=== PATIENT | female | born 1995 | race American Indian/Alaskan Native ===

== ENCOUNTER 2017-08-07 18:34 | Inpatient (IN) | payer MEDICAID ==
[2017-08-07] MEDS ORDERED: Water For Irrigation,Sterile 1,000 ML Container IRR PRN (21:33)
[2017-08-07] MEDS ORDERED: Carboprost Tromethamine 250 MCG/1 ML Amp IM PRN (21:33)
[2017-08-07] MEDS ORDERED: Sodium Chloride 0.9% 2.5 ML Syringe FLUSH PRN (21:33)
[2017-08-07] MEDS ORDERED: Lidocaine 1% 50 ML MDV INJECT PRN (21:33)
[2017-08-07] MEDS ORDERED: Misoprostol 200 MCG Tab PO PRN (21:33)
[2017-08-07] MEDS ORDERED: Terbutaline 1 MG/ML SDV SUBCUT PRN (21:33)
[2017-08-07] MEDS ORDERED: Sodium Chloride 0.9% 10 ML Syringe FLUSH PRN (21:33)
[2017-08-07] MEDS ORDERED: Nalbuphine 10 MG/1 ML Vial IVPUSH PRN (21:33)
[2017-08-07] MEDS ORDERED: Methylergonovine 0.2 MG/1 ML Amp IM PRN (21:33)
[2017-08-07] MEDS ORDERED: Oxytocin/0.9 % Sodium Chloride 30 UNIT/500 ML BAG IV SCH ×2 (21:45)
[2017-08-07] MEDS: Lactated Ringers 1,000 ML IV SCH (22:13)
[2017-08-07 22:46] LABS: CHLORIDE,CL 111 mmol/L (98-110); SODIUM,NA 137 mmol/L (136-146)
[2017-08-07] MEDS: Butorphanol 1 MG/ML SDV IVPUSH PRN (22:55)
[2017-08-08] MEDS: Butorphanol 1 MG/ML SDV IVPUSH PRN (02:46)
[2017-08-08] MEDS: Lactated Ringers 1,000 ML IV SCH ×2 (03:31→04:00)
[2017-08-08] MEDS ORDERED: ePHEDrine 50 MG/ML SDV ONE (04:00)
[2017-08-08] MEDS ORDERED: fentaNYL 100 MCG/2 ML SDV ONE (04:01)
[2017-08-08] MEDS ORDERED: Ropivacaine HCl/PF 100 ML ONE (04:01)
[2017-08-08] MEDS ORDERED: Ropivacaine 0.2% 2 MG/ML 20 ML SDV ONE (04:01)
--- NOTE | 2017-08-08 04:46 | PCM.PREANE ---
Preanesthetic Assessment - Procedure Proposed Procedure: labor epidural - Anesthesia/Transfusion/Family Hx Anesthesia History: Prior Anesthesia Without Reaction (wisdom teeth) Family History of Anesthesia Reaction: No Transfusion History: No Prior Transfusion(s) - Review of Systems General: No Symptoms Pulmonary: No Symptoms Cardiovascular: No Symptoms Gastrointestinal: No Symptoms Neurological: No Symptoms Other: Reports: None - Physical Assessment Pulse: 120 O2 Sat by Pulse Oximetry: 98 Blood Pressure: 142/75 Height: 1.57 m Weight: 81.647 kg ASA Class: 2 Mental Status: Alert & Oriented x3 Airway Class: Mallampati = 2 Dentition: Reports: Normal Dentition Thyro-Mental Finger Breadths: 3 (2 lip piercing lower lip) Mouth Opening Finger Breadths: 3 ROM/Head Extension: Full Lungs: Clear to Auscultation Cardiovascular: Regular Rate - Lab Values: Laboratory Last Values WBC 8.50 K/uL (4.0-11.0) 08/07/17 22:11 RBC 3.91 M/uL (4.30-5.90) L 08/07/17 22:11 Hgb 12.1 g/dL (12.0-16.0) 08/07/17 22:11 Hct 35.7 % (36.0-46.0) L 08/07/17 22:11 MCV 91.3 fL (80.0-98.0) 08/07/17 22:11 MCH 30.9 pg (27.0-32.0) 08/07/17 22:11 MCHC 33.9 g/dL (31.0-37.0) 08/07/17 22:11 RDW Std Deviation 46.2 fl (28.0-62.0) 08/07/17 22:11 RDW Coeff of Radha 14 % (11.0-15.0) 08/07/17 22:11 Plt Count 168 K/uL (150-400) 08/07/17 22:11 MPV 13.40 fL (7.40-12.00) H 08/07/17 22:11 Nucleated RBC % 0.9 /100WBC 08/07/17 22:11 Nucleated RBCs # 0 K/uL 08/07/17 22:11 INR 0.92 (0.86-1.11) 08/07/17 22:11 APTT 28.1 SEC (18.6-31.3) 08/07/17 22:11 Fibrinogen 432 mg/dL (215-411) H 08/07/17 22:11 Sodium 137 mmol/L (136-146) 08/07/17 22:11 Potassium 4.2 mmol/L (3.5-5.1) 08/07/17 22:11 Chloride 111 mmol/L (98-110) H 08/07/17 22:11 Carbon Dioxide 18 mmol/L (21-31) L 08/07/17 22:11 BUN 12 mg/dL (6.0-23.0) 08/07/17 22:11 Creatinine 0.7 mg/dL (0.6-1.5) 08/07/17 22:11 Est Cr Clr Drug Dosing 98.01 mL/min 08/07/17 22:11 Estimated GFR (MDRD) > 60.0 ml/min 08/07/17 22:11 Glucose 90 mg/dL (60-110) 08/07/17 22:11 Calcium 8.6 mg/dL (8.8-10.8) L 08/07/17 22:11 Total Bilirubin 0.3 mg/dL (0.1-1.5) 08/07/17 22:11 AST 34 IU/L (5-40) 08/07/17 22:11 ALT 27 IU/L (8-54) 08/07/17 22:11 Alkaline Phosphatase 182 (40-150) H 08/07/17 22:11 Total Protein 6.1 g/dL (6.0-8.0) 08/07/17 22:11 Albumin 3.0 g/dL (3.5-5.0) L 08/07/17 22:11 Globulin 3.1 g/dL (2.0-3.5) 08/07/17 22:11 Albumin/Globulin Ratio 1.0 (1.3-2.8) L 08/07/17 22:11 Urine Color YELLOW 08/07/17 19:15 Urine Appearance HAZY 08/07/17 19:15 Urine pH 6.5 (5.0-8.0) 08/07/17 19:15 Ur Specific [place] <= 1.005 (1.001-1.035) 08/07/17 19:15 Urine Protein NEGATIVE mg/dL (NEGATIVE) 08/07/17 19:15 Urine Glucose (UA) NEGATIVE mg/dL (NEGATIVE) 08/07/17 19:15 Urine Ketones NEGATIVE mg/dL (NEGATIVE) 08/07/17 19:15 Urine Occult Blood NEGATIVE (NEGATIVE) 08/07/17 19:15 Urine Nitrite NEGATIVE (NEGATIVE) 08/07/17 19:15 Urine Bilirubin NEGATIVE (NEGATIVE) 08/07/17 19:15 Urine Urobilinogen 0.2 EU/dL (<2.0) 08/07/17 19:15 Ur Leukocyte Esterase SMALL (NEGATIVE) 08/07/17 19:15 Blood Type A POSITIVE 08/07/17 22:11 Antibody Screen NEGATIVE 08/07/17 22:11 - Allergies Allergies/Adverse Reactions: Allergies Allergy/AdvReac Type Severity Reaction Status Date / Time morphine Allergy Rash Verified 08/07/17 18:53 Penicillins Allergy Anaphylactic Verified 08/07/17 18:53 Shock vancomycin Allergy Anaphylactic Verified 08/07/17 18:53 Shock - Blood Blood Available: Yes Product(s) Available: PRBC - Anesthesia Plan Pre-Op Medication Ordered: None - Acknowledgements Anesthesia Type Planned: Epidural Pt an Appropriate Candidate for the Planned Anesthesia: Yes Alternatives and Risks of Anesthesia Discussed w Pt/Guardian: Yes Pt/Guardian Understands and Agrees with Anesthesia Plan: Yes PreAnesthesia Questionnaire Respiratory History: Reports: Asthma 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: Psychiatric History: Reports: Depression - Past Surgical History Respiratory Surgical History: Reports: None - SUBSTANCE USE Smoking Status *Q: Former Smoker Tobacco Use Within Last Twelve Months: No Recreational Drug Use History: No - CURRENT (IN HOUSE) MEDS Current Meds: Current Medications Butorphanol Tartrate (Stadol) 1 mg IVPUSH Q1H PRN PRN Reason: Pain Last Admin: 08/08/17 02:46 Dose: 1 mg Carboprost Tromethamine (Hemabate Ds) 250 mcg IM ASDIRECTED PRN PRN Reason: Post Hemorrhage Lactated Ringer's (Ringers, Lactated) 1,000 mls @ 150 mls/hr IV ASDIRECTED GLORIA Last Infusion: 08/08/17 04:29 Dose: 150 mls/hr Oxytocin/Sodium Chloride (Oxytocin 30 Unit/500 Ml-Ns) 30 unit in 500 mls @ 999 mls/hr IV TITRATE GLORIA Oxytocin/Sodium Chloride (Oxytocin 30 Unit/500 Ml-Ns) 30 unit in 500 mls @ 2 mls/hr IV TITRATE GLORIA; 2 MUNITS/MIN PRN Reason: Protocol Last Titration: 08/08/17 01:45 Dose: 6 munits/min, 6 mls/hr Lidocaine HCl (Xylocaine 1%) 50 ml INJECT .ONCE PRN PRN Reason: Laceration repair Methylergonovine Maleate (Methergine) 0.2 mg IM ASDIRECTED PRN PRN Reason: Post Hemorrhage Misoprostol (Cytotec) 200 mcg PO .ONCE PRN PRN Reason: Post Hemorrhage Nalbuphine HCl (Nubain) 10 mg IVPUSH Q1H PRN PRN Reason: Pain (severe 7-10) Sodium Chloride (Saline Flush) 10 ml FLUSH ASDIRECTED PRN PRN Reason: Keep Vein Open Sodium Chloride (Saline Flush) 2.5 ml FLUSH ASDIRECTED PRN PRN Reason: Keep Vein Open Sterile Water (Sterile Water For Irrigation) 1,000 ml IRR ASDIRECTED PRN PRN Reason: delivery Terbutaline Sulfate (Brethine) 0.25 mg SUBCUT ASDIRECTED PRN PRN Reason: Tacysystole Discontinued Medications Ephedrine Sulfate (Ephedrine Sulfate) Confirm Administered Dose 50 mg .ROUTE .STK-MED ONE Stop: 08/08/17 04:01 Fentanyl (Sublimaze) Confirm Administered Dose 300 mcg .ROUTE .STK-MED ONE Stop: 08/08/17 04:02 Ropivacaine (Naropin 0.2%) Confirm Administered Dose 100 mls @ as directed .ROUTE .STK-MED ONE Stop: 08/08/17 04:02 Ropivacaine (Naropin 0.2%) Confirm Administered Dose 20 ml .ROUTE .STK-MED ONE Stop: 08/08/17 04:02
--- NOTE | 2017-08-08 04:52 | PCM.PRNOTE ---
- Free Text/Narrative Note: Called for a labor epidural for patient c/o labor pain. Patient identified and history reviewed. Discussed procedure and risks including bleeding, infection, nerve pain, nerve damage and unsuccessful epidural. Patient agrees. Sitting up, sterile betadine prep times 3 and sterile drape. 1% lidocaine SQ at L4 #25 Touhy advanced os x 1 on right, needle redirected TOMY, Touhy advanced TOMY saline to approximately 6 cm. Catheter easily advanced to 12 cm. No heme no paresthesia. Test dose 3 ml 1.5% lidocaine with epinephrine 1:200,000. negative reaction. Bolus of fentanyl 100 mcg given with 4 ml 0.2% ropivicaine. ropivicaine bolus x2 of 2ml each. Total 8 ml bolus.Patient reports pain relief after 2 contractions. Level noted to be T10 on right, lt side T12. pt turned to left, to help spread. Epidural drip of 0.2% ropivicaine and Fentanyl 2 mcg/ml started at 8 ml/hr PCEA bolus of 4 ml every 20 minutes. Pt tolerated well.
[2017-08-08] MEDS ORDERED: Acetaminophen 500 MG Tab PO ONE (05:20)
[2017-08-08 08:01] LABS: CHLORIDE,CL 111 mmol/L (98-110); SODIUM,NA 137 mmol/L (136-146)
[2017-08-08] MEDS ORDERED: Magnesium Sulfate/Water 4 GM in Premix Bag 1 BAG IV ONE (09:01)
[2017-08-08] MEDS ORDERED: Sodium Chloride 0.9% 2.5 ML Syringe FLUSH PRN (09:01)
[2017-08-08] MEDS ORDERED: Calcium Gluconate 10% 1 GM/10 ML SDV IV PRN (09:01)
[2017-08-08] MEDS ORDERED: Sodium Chloride 0.9% 10 ML Syringe FLUSH PRN (09:01)
[2017-08-08] MEDS ORDERED: Sodium Chloride 0.9% 1,000 ML IV SCH (09:45)
[2017-08-08] MEDS: Magnesium Sulfate/Water 40 GM/1,000 ML BAG IV SCH (10:15)
[2017-08-08] MEDS ORDERED: Lanolin 100% Cream 7 GM Tube TOP PRN (13:33)
[2017-08-08] MEDS ORDERED: oxyCODONE 5 MG Tab PO PRN (13:33)
[2017-08-08] MEDS ORDERED: Benzocaine/Menthol 20%-0.5% Spray 78 GM Cannister TOP PRN (13:33)
[2017-08-08] MEDS ORDERED: Ibuprofen 400 MG Tab PO PRN (13:33)
[2017-08-08] MEDS ORDERED: Docusate Sodium 100 MG Cap PO PRN (13:33)
[2017-08-08] MEDS ORDERED: Bisacodyl 10 MG Supp RECTAL PRN (13:33)
[2017-08-08] MEDS ORDERED: Witch Hazel Medicated Pads 40/Jar TOP PRN (13:33)
--- NOTE | 2017-08-08 14:10 | OR ---
SURGEON: AILYN FLAHERTY DATE OF PROCEDURE: 08/08/2017 PREOPERATIVE DIAGNOSIS: A 22-year-old 1, para 0, at 38 weeks 1 day undergoing induction of labor for gestational hypertension and decreased movement. GBS negative. POSTOPERATIVE DIAGNOSIS: Status post normal spontaneous vaginal delivery at 38 weeks 1 day. Patient with severe preeclampsia, GBS negative. ESTIMATED BLOOD LOSS: 300. FINDINGS: Live female delivered at 12:58 p.m. score of 9 and 9. Weight was 2910 g. The perineum was intact. 3-vessel cord was noted. ANESTHESIA: Epidural. BRIEF HISTORY: She is a 22-year-old, G1, P0, who presented at 38 weeks and 0 days complaining of decreased movement. Upon evaluation, the patient was noted to have blood pressure in 120s to 160s over 80s to 100s. Patient was started on magnessium for seizure prophylaxis . As a result, the patient was admitted for induction of labor secondary to gestational hypertension, rule out preeclampsia. The patient was 2 cm on presentation. Induction was started with Choi. After the Choi, the patient received Pitocin. Pitocin was gradually titrated up. The patient had changed after the Choi from 2-4 cm dilated. She then progressed to 7. Then became fully dilated. The patient had a category 1 tracing majorly. Occasionally had variable decels. With that good pushing effort, the patient was delivered. PROCEDURE : The patient was placed in dorsal lithotomy position and she was then encouraged to push. With patient's good pushing effort, the head was delivered, subsequently the anterior shoulder and the posterior shoulder. The body was then subsequently delivered. The was placed on the skin. Delayed cord clamping was observed and the cord clamp and cut. The placenta was delivered via controlled cord traction. The uterus was found to be contracted after the delivery. The perineum was inspected and noted to be intact. The laparotomy sponges were counted and was found to be correct. All instrument counts were correct x2. The patient tolerated the procedure and is currently bonding with the baby. JUAN SHEIKH /[id number] JAJA
[2017-08-08] MEDS: Ibuprofen 800 MG Tab PO PRN ×2 (15:06→21:13)
[2017-08-08] MEDS: Acetaminophen 500 MG Tab PO PRN (17:22)
--- NOTE | 2017-08-08 21:42 | PCM48HPAN ---
Post Anesthesia Note - EVALUATION WITHIN 48HRS OF ANESTHETIC Vital Signs in Normal Range: Yes Patient Participated in Evaluation: Yes Respiratory Function Stable: Yes Airway Patent: Yes Cardiovascular Function Stable: Yes Hydration Status Stable: Yes Pain Control Satisfactory: Yes Nausea and Vomiting Control Satisfactory: Yes Mental Status Recovered: Yes
[2017-08-09] MEDS: Ibuprofen 800 MG Tab PO PRN ×2 (03:23→15:36)
[2017-08-09] MEDS: Magnesium Sulfate/Water 40 GM/1,000 ML BAG IV SCH (06:24)
[2017-08-09] MEDS: Acetaminophen 500 MG Tab PO PRN ×3 (09:39→22:43)
[2017-08-09] MEDS ORDERED: Metoclopramide 10 MG/2 ML SDV IM ONE (09:55)
[2017-08-09] MEDS ORDERED: Metoclopramide 10 MG/2 ML SDV IVPUSH ONE (10:09)
--- NOTE | 2017-08-09 11:30 | PCM.PNPP ---
- General Info Date of Service: 08/09/17 Admission Dx/Problem (Free Text): 22yo now P1 with severe preclampsia based on severe range BP and headache. she is currently stable on Magnessium. BP is well controlled Subjective Update: Patient seen at bedside , she denies any complains .she is voiding adequately. PIH labs wnl, DTR 2+ BP; 120s- 130s/70- 80s Functional Status: Reports: Pain Controlled, Tolerating Diet, Ambulating, Urinating - Review of Systems General: Reports: No Symptoms HEENT: Reports: No Symptoms Pulmonary: Reports: No Symptoms Cardiovascular: Reports: No Symptoms Gastrointestinal: Reports: No Symptoms Genitourinary: Reports: No Symptoms Musculoskeletal: Reports: No Symptoms Skin: Reports: No Symptoms Neurological: Reports: No Symptoms Psychiatric: Reports: No Symptoms - General Info Date of Service: 08/09/17 - Patient Data Vital Signs - Most Recent: Last Vital Signs Temp 36.6 C 08/09/17 08:00 Pulse 93 08/09/17 08:00 Resp 14 08/09/17 08:00 BP 134/86 08/09/17 08:00 Pulse Ox 99 08/09/17 08:00 Weight - Most Recent: 81.647 kg I&O - Last 24 Hours: Intake & Output 08/08/17 08/09/17 08/09/17 22:59 06:59 14:59 Intake Total 1050 Output Total 1200 Balance -150 Lab Results - Last 24 Hours: Laboratory Results - last 24 hr 08/08/17 08/08/17 08/09/17 Range/Units 14:36 19:50 01:56 Hgb (12.0-16.0) g/dL Hct (36.0-46.0) % Magnesium 3.6 H 4.3 H 4.7 H (1.5-2.3) mEq/L 08/09/17 08/09/17 Range/Units 08:18 08:18 Hgb 10.8 L (12.0-16.0) g/dL Hct 32.3 L (36.0-46.0) % Magnesium 4.8 H (1.5-2.3) mEq/L Med Orders - Current: Current Medications Acetaminophen (Tylenol Extra Strength) 500 mg PO Q4H PRN PRN Reason: Pain Last Admin: 08/09/17 09:39 Dose: 500 mg Acetaminophen (Tylenol Extra Strength) 1,000 mg PO Q4H PRN PRN Reason: Pain Last Admin: 08/08/17 17:22 Dose: 1,000 mg Benzocaine/Menthol (Dermoplast Pain Relief 20%-0.5% [place]) 78 gm TOP ASDIRECTED PRN PRN Reason: Perineal Comfort Measure Bisacodyl (Dulcolax) 10 mg RECTAL .ONCE PRN PRN Reason: Constipation Butorphanol Tartrate (Stadol) 1 mg IVPUSH Q1H PRN PRN Reason: Pain Last Admin: 08/08/17 02:46 Dose: 1 mg Calcium Gluconate (Calcium Gluconate) 1 gm IV ASDIRECTED PRN PRN Reason: respiratory distress Carboprost Tromethamine (Hemabate Ds) 250 mcg IM ASDIRECTED PRN PRN Reason: Post Hemorrhage Docusate Sodium (Colace) 100 mg PO BID PRN PRN Reason: Constipation Emollient Ointment (Lansinoh Hpa) 0 gm TOP ASDIRECTED PRN PRN Reason: Sore Nipples Last Admin: 08/08/17 17:35 Dose: 1 applic Lactated Ringer's (Ringers, Lactated) 1,000 mls @ 150 mls/hr IV ASDIRECTED GLORIA Last Infusion: 08/08/17 04:29 Dose: 150 mls/hr Oxytocin/Sodium Chloride (Oxytocin 30 Unit/500 Ml-Ns) 30 unit in 500 mls @ 999 mls/hr IV TITRATE GLORIA Oxytocin/Sodium Chloride (Oxytocin 30 Unit/500 Ml-Ns) 30 unit in 500 mls @ 2 mls/hr IV TITRATE GLORIA; 2 MUNITS/MIN PRN Reason: Protocol Last Titration: 08/08/17 12:41 Dose: 500 munits/min, 500 mls/hr Magnesium Sulfate (Magnesium Sulfate 40 Gm In Water 1000 Ml) 40 gm in 1,000 mls @ 50 mls/hr IV ASDIRECTED GLORIA; 2 GM/HR PRN Reason: Protocol Last Admin: 08/09/17 06:24 Dose: 2 gm/hr, 50 mls/hr Sodium Chloride (Normal Saline) 1,000 mls @ 10 mls/hr IV ASDIRECTED GLORIA Last Admin: 08/08/17 09:50 Dose: 10 mls/hr Ibuprofen (Motrin) 400 mg PO Q4H PRN PRN Reason: Pain Ibuprofen (Motrin) 800 mg PO Q6H PRN PRN Reason: Pain Last Admin: 08/09/17 03:23 Dose: 800 mg Lidocaine HCl (Xylocaine 1%) 50 ml INJECT .ONCE PRN PRN Reason: Laceration repair Methylergonovine Maleate (Methergine) 0.2 mg IM ASDIRECTED PRN PRN Reason: Post Hemorrhage Misoprostol (Cytotec) 200 mcg PO .ONCE PRN PRN Reason: Post Hemorrhage Nalbuphine HCl (Nubain) 10 mg IVPUSH Q1H PRN PRN Reason: Pain (severe 7-10) Oxycodone HCl (Oxycodone) 5 mg PO Q2H PRN PRN Reason: Pain Sodium Chloride (Saline Flush) 10 ml FLUSH ASDIRECTED PRN PRN Reason: Keep Vein Open Sodium Chloride (Saline Flush) 2.5 ml FLUSH ASDIRECTED PRN PRN Reason: Keep Vein Open Sodium Chloride (Saline Flush) 10 ml FLUSH ASDIRECTED PRN PRN Reason: Keep Vein Open Sodium Chloride (Saline Flush) 2.5 ml FLUSH ASDIRECTED PRN PRN Reason: Keep Vein Open Sterile Water (Sterile Water For Irrigation) 1,000 ml IRR ASDIRECTED PRN PRN Reason: delivery Terbutaline Sulfate (Brethine) 0.25 mg SUBCUT ASDIRECTED PRN PRN Reason: Tacysystole Witch Karen (Tucks) 1 pad TOP ASDIRECTED PRN PRN Reason: comfort care Discontinued Medications Acetaminophen (Tylenol Extra Strength) 1,000 mg PO ONETIME ONE Stop: 08/08/17 05:21 Last Admin: 08/08/17 05:35 Dose: 1,000 mg Ephedrine Sulfate (Ephedrine Sulfate) Confirm Administered Dose 50 mg .ROUTE .STK-MED ONE Stop: 08/08/17 04:01 Last Admin: 08/08/17 06:15 Dose: Not Given Fentanyl (Sublimaze) Confirm Administered Dose 300 mcg .ROUTE .STK-MED ONE Stop: 08/08/17 04:02 Last Admin: 08/08/17 06:15 Dose: Not Given Ropivacaine (Naropin 0.2%) Confirm Administered Dose 100 mls @ as directed .ROUTE .STK-MED ONE Stop: 08/08/17 04:02 Last Admin: 08/08/17 06:15 Dose: Not Given Magnesium Sulfate 4 gm/ Premix 100 mls @ 400 mls/hr IV .BOLUS ONE Stop: 08/08/17 09:15 Last Admin: 08/08/17 09:55 Dose: 400 mls/hr Metoclopramide HCl (Reglan) 10 mg IM ONETIME ONE Stop: 08/09/17 09:56 Last Admin: 08/09/17 10:21 Dose: Not Given Metoclopramide HCl (Reglan) 10 mg IVPUSH ONETIME ONE Stop: 08/09/17 10:10 Last Admin: 08/09/17 10:22 Dose: 10 mg Ropivacaine (Naropin 0.2%) Confirm Administered Dose 20 ml .ROUTE .STK-MED ONE Stop: 08/08/17 04:02 Last Admin: 08/08/17 06:15 Dose: Not Given - Interaction Infant Disposition, : at Bedside Support Person: Significant Other - Recovery Exam Fundal Tone: Firm Fundal Level: 1 Fingerbreadths Below Umbilicus Fundal Placement: Midline Lochia Amount: Scant Lochia Color: Rubra/Red Perineum Description: Intact, Minimal Bruising/Swelling Episiotomy/Laceration: None Bladder Status: Voiding Urinary Elimination: Voided - Exam General: Alert, Oriented Lungs: Clear to Auscultation, Normal Respiratory Effort Cardiovascular: Regular Rate, Regular Rhythm GI/Abdominal Exam: Normal Bowel Sounds, Soft Extremities: Normal Inspection Psy/Mental Status: Alert - Problem List & Annotations (1) Pre-eclampsia SNOMED Code(s): 343732391 Code(s): O14.90 - UNSPECIFIED PRE-ECLAMPSIA, UNSPECIFIED TRIMESTER Status: Acute Current Visit: Yes - Problem List Review Problem List Initiated/Reviewed/Updated: Yes - My Orders Last 24 Hours: My Active Orders 08/08/17 11:15 Deep Tendon Reflexes [WOMSER] Q1H 08/08/17 12:15 Deep Tendon Reflexes [WOMSER] Q1H 08/08/17 13:15 Deep Tendon Reflexes [WOMSER] Q1H 08/08/17 13:33 Acetaminophen [Tylenol Extra Strength] 1,000 mg PO Q4H PRN Acetaminophen [Tylenol Extra Strength] 500 mg PO Q4H PRN Benzocaine/Menthol [Dermoplast Pain Relief 20%-0.5% [place]] 78 gm TOP ASDIRECTED PRN Bisacodyl [Dulcolax] 10 mg RECTAL .ONCE PRN Docusate Sodium [Colace] 100 mg PO BID PRN Ibuprofen [Motrin] 400 mg PO Q4H PRN Ibuprofen [Motrin] 800 mg PO Q6H PRN Lanolin [Lansinoh HPA] See Dose Instructions TOP ASDIRECTED PRN Witch Karen [Tucks] 1 pad TOP ASDIRECTED PRN oxyCODONE 5 mg PO Q2H PRN 08/08/17 13:34 Patient Status [ADT] Routine Up ad Awilda [RC] ASDIRECTED Vital Signs [RC] PER UNIT ROUTINE Assess Lochia [WOMSER] Per Unit Routine Assess Uterine Involution [WOMSER] Per Unit Routine Peripheral IV Discontinue [OM.PC] Routine 08/08/17 14:15 Deep Tendon Reflexes [WOMSER] Q1 08/08/17 15:15 Deep Tendon Reflexes [WOMSER] Q1 08/08/17 16:15 Deep Tendon Reflexes [WOMSER] Q1 08/08/17 17:15 Deep Tendon Reflexes [WOMSER] Q1 08/08/17 18:15 Deep Tendon Reflexes [WOMSER] Q1 08/08/17 19:15 Deep Tendon Reflexes [WOMSER] Q1 08/08/17 20:15 Deep Tendon Reflexes [WOMSER] [facility] 08/08/17 21:15 Deep Tendon Reflexes [WOMSER] [facility] 08/08/17 22:15 Deep Tendon Reflexes [WOMSER] [facility] 08/08/17 23:15 Deep Tendon Reflexes [WOMSER] Q1 08/09/17 00:15 Deep Tendon Reflexes [WOMSER] [facility] 08/09/17 01:15 Deep Tendon Reflexes [WOMSER] [facility] 08/09/17 02:15 Deep Tendon Reflexes [WOMSER] [facility] 08/09/17 03:15 Deep Tendon Reflexes [WOMSER] [facility] 08/09/17 04:15 Deep Tendon Reflexes [WOMSER] [facility] 08/09/17 05:15 Deep Tendon Reflexes [WOMSER] [facility] 08/09/17 06:15 Deep Tendon Reflexes [WOMSER] Q1H 08/09/17 07:15 Deep Tendon Reflexes [WOMSER] Q1H 08/09/17 08:15 Deep Tendon Reflexes [WOMSER] Q1H - Assessment Assessment:: 22yo P1 s/p , Severe preclampsia on Mag , BP now well controlled, Normal Lochia - Plan Plan:: Continue mag for 24hr postdelivery Continue mag checks Pain control as need Possible D/C tomorrow
[2017-08-10] MEDS: Acetaminophen 500 MG Tab PO PRN (06:31)
--- NOTE | 2017-08-10 08:23 | PCM.PNPP ---
- General Info Date of Service: 08/10/17 Functional Status: Reports: Pain Controlled, Tolerating Diet, Ambulating, Urinating - Review of Systems General: Denies: Fever, Weakness, Fatigue Pulmonary: Denies: Shortness of Breath, Pleuritic Chest Pain, Cough Cardiovascular: Denies: Chest Pain, Palpitations, Dyspnea on Exertion Gastrointestinal: Denies: Abdominal Pain Genitourinary: Denies: Dysuria - General Info Date of Service: 08/10/17 - Patient Data Vital Signs - Most Recent: Last Vital Signs Temp 36.9 C 08/09/17 16:45 Pulse 84 08/10/17 05:27 Resp 17 08/10/17 05:27 BP 130/79 08/10/17 05:27 Pulse Ox 98 08/10/17 05:27 Weight - Most Recent: 81.647 kg Lab Results - Last 24 Hours: Laboratory Results - last 24 hr 08/09/17 08/09/17 Range/Units 08:18 08:18 Hgb 10.8 L (12.0-16.0) g/dL Hct 32.3 L (36.0-46.0) % Magnesium 4.8 H (1.5-2.3) mEq/L Med Orders - Current: Current Medications Acetaminophen (Tylenol Extra Strength) 500 mg PO Q4H PRN PRN Reason: Pain Last Admin: 08/10/17 06:31 Dose: 500 mg Acetaminophen (Tylenol Extra Strength) 1,000 mg PO Q4H PRN PRN Reason: Pain Last Admin: 08/09/17 22:43 Dose: 1,000 mg Benzocaine/Menthol (Dermoplast Pain Relief 20%-0.5% [place]) 78 gm TOP ASDIRECTED PRN PRN Reason: Perineal Comfort Measure Bisacodyl (Dulcolax) 10 mg RECTAL .ONCE PRN PRN Reason: Constipation Butorphanol Tartrate (Stadol) 1 mg IVPUSH Q1H PRN PRN Reason: Pain Last Admin: 08/08/17 02:46 Dose: 1 mg Carboprost Tromethamine (Hemabate Ds) 250 mcg IM ASDIRECTED PRN PRN Reason: Post Hemorrhage Docusate Sodium (Colace) 100 mg PO BID PRN PRN Reason: Constipation Emollient Ointment (Lansinoh Hpa) 0 gm TOP ASDIRECTED PRN PRN Reason: Sore Nipples Last Admin: 08/08/17 17:35 Dose: 1 applic Lactated Ringer's (Ringers, Lactated) 1,000 mls @ 150 mls/hr IV ASDIRECTED GLORIA Last Infusion: 08/08/17 04:29 Dose: 150 mls/hr Oxytocin/Sodium Chloride (Oxytocin 30 Unit/500 Ml-Ns) 30 unit in 500 mls @ 999 mls/hr IV TITRATE GLORIA Oxytocin/Sodium Chloride (Oxytocin 30 Unit/500 Ml-Ns) 30 unit in 500 mls @ 2 mls/hr IV TITRATE GLORIA; 2 MUNITS/MIN PRN Reason: Protocol Last Titration: 08/08/17 12:41 Dose: 500 munits/min, 500 mls/hr Sodium Chloride (Normal Saline) 1,000 mls @ 10 mls/hr IV ASDIRECTED GLORIA Last Admin: 08/08/17 09:50 Dose: 10 mls/hr Ibuprofen (Motrin) 400 mg PO Q4H PRN PRN Reason: Pain Ibuprofen (Motrin) 800 mg PO Q6H PRN PRN Reason: Pain Last Admin: 08/09/17 15:36 Dose: 800 mg Lidocaine HCl (Xylocaine 1%) 50 ml INJECT .ONCE PRN PRN Reason: Laceration repair Methylergonovine Maleate (Methergine) 0.2 mg IM ASDIRECTED PRN PRN Reason: Post Hemorrhage Misoprostol (Cytotec) 200 mcg PO .ONCE PRN PRN Reason: Post Hemorrhage Nalbuphine HCl (Nubain) 10 mg IVPUSH Q1H PRN PRN Reason: Pain (severe 7-10) Oxycodone HCl (Oxycodone) 5 mg PO Q2H PRN PRN Reason: Pain Last Admin: 08/10/17 06:36 Dose: 5 mg Sodium Chloride (Saline Flush) 10 ml FLUSH ASDIRECTED PRN PRN Reason: Keep Vein Open Sodium Chloride (Saline Flush) 2.5 ml FLUSH ASDIRECTED PRN PRN Reason: Keep Vein Open Sodium Chloride (Saline Flush) 10 ml FLUSH ASDIRECTED PRN PRN Reason: Keep Vein Open Sodium Chloride (Saline Flush) 2.5 ml FLUSH ASDIRECTED PRN PRN Reason: Keep Vein Open Sterile Water (Sterile Water For Irrigation) 1,000 ml IRR ASDIRECTED PRN PRN Reason: delivery Terbutaline Sulfate (Brethine) 0.25 mg SUBCUT ASDIRECTED PRN PRN Reason: Tacysystole Witch Karen (Tucks) 1 pad TOP ASDIRECTED PRN PRN Reason: comfort care Discontinued Medications Acetaminophen (Tylenol Extra Strength) 1,000 mg PO ONETIME ONE Stop: 08/08/17 05:21 Last Admin: 08/08/17 05:35 Dose: 1,000 mg Calcium Gluconate (Calcium Gluconate) 1 gm IV ASDIRECTED PRN PRN Reason: respiratory distress Ephedrine Sulfate (Ephedrine Sulfate) Confirm Administered Dose 50 mg .ROUTE .STK-MED ONE Stop: 08/08/17 04:01 Last Admin: 08/08/17 06:15 Dose: Not Given Fentanyl (Sublimaze) Confirm Administered Dose 300 mcg .ROUTE .STK-MED ONE Stop: 08/08/17 04:02 Last Admin: 08/08/17 06:15 Dose: Not Given Ropivacaine (Naropin 0.2%) Confirm Administered Dose 100 mls @ as directed .ROUTE .STK-MED ONE Stop: 08/08/17 04:02 Last Admin: 08/08/17 06:15 Dose: Not Given Magnesium Sulfate 4 gm/ Premix 100 mls @ 400 mls/hr IV .BOLUS ONE Stop: 08/08/17 09:15 Last Admin: 08/08/17 09:55 Dose: 400 mls/hr Magnesium Sulfate (Magnesium Sulfate 40 Gm In Water 1000 Ml) 40 gm in 1,000 mls @ 50 mls/hr IV ASDIRECTED GLORIA; 2 GM/HR PRN Reason: Protocol Last Admin: 08/09/17 06:24 Dose: 2 gm/hr, 50 mls/hr Metoclopramide HCl (Reglan) 10 mg IM ONETIME ONE Stop: 08/09/17 09:56 Last Admin: 08/09/17 10:21 Dose: Not Given Metoclopramide HCl (Reglan) 10 mg IVPUSH ONETIME ONE Stop: 08/09/17 10:10 Last Admin: 08/09/17 10:22 Dose: 10 mg Ropivacaine (Naropin 0.2%) Confirm Administered Dose 20 ml .ROUTE .STK-MED ONE Stop: 08/08/17 04:02 Last Admin: 08/08/17 06:15 Dose: Not Given - Infant Interaction Infant Disposition, : Win[place] at Bedside Infant Feeding: Attempted ; Nursed Fair/Poor Support Person: Significant Other - Recovery Exam Fundal Tone: Firm Fundal Level: 1 Fingerbreadths Below Umbilicus Fundal Placement: Midline Lochia Amount: Scant Lochia Color: Rubra/Red Perineum Description: Intact, Minimal Bruising/Swelling Episiotomy/Laceration: None Bladder Status: Voiding Urinary Elimination: Voided - Exam General: Alert Lungs: Clear to Auscultation, Normal Respiratory Effort Cardiovascular: Regular Rate, Regular Rhythm GI/Abdominal Exam: Normal Bowel Sounds, Soft, Non-Tender, No Organomegaly, No Distention, No Abnormal Bruit, No Mass, Pelvis Stable Extremities: Normal Inspection, Normal Range of Motion, Non-Tender, Pedal Edema (1+ pitting) - Problem List Review Problem List Initiated/Reviewed/Updated: Yes - Assessment Assessment:: 22yo P2 s/p , preeclampsia, BP has stabalized. Minimal pain and lochia. - Plan Plan:: Discharge instructions reviewed. Nothing in the vagina for 6 weeks. Continue PNV while breast feeding. Can use OTC ibuprofen/tylenol as needed for pain. Instructed patient to call if she develops fever greater than 101 or bleeding through a large pad an hour. F/U with [facility] in 1 week for BP check and than 6 weeks
== END 2017-08-10 13:55 | disposition home or self-care (01) | DRG 775 ==
LOC: MW.OB 18:34 → MW.OBCHECK 18:34 → MW.OB 21:33 → MW.OBCHECK 21:33 → OBSVTOIN 08-08 09:01 → MW.OB 08-08 14:46
PROVIDERS: ADMIT Obstetrics & Gynecology; ATTEND Obstetrics & Gynecology
PROC: 10E0XZZ Delivery of Products of Conception, External Approach (ICD-10-PCS; principal; 2017-08-08)
PROC: 3E0P3VZ Introduction of Hormone into Female Reproductive, Percutaneous Approach (ICD-10-PCS; 2017-08-08)
PROC: 10907ZC Drainage of Amniotic Fluid, Therapeutic from Products of Conception, Via Natural or Artificial Opening (ICD-10-PCS; 2017-08-08)
DX: O14.14 Severe pre-eclampsia complicating childbirth (principal); O36.8130 Decreased fetal movements, third trimester, not applicable or unspecified; Z3A.38 38 weeks gestation of pregnancy; Z37.0 Single live birth; Z88.0 Allergy status to penicillin; Z88.1 Allergy status to other antibiotic agents
CPT/HCPCS: 01967; 36415; 51702; 59025; 59409; 80053; 81003; 83735; 84550; 85014; 85018; 85025; 85027; 85384; 85610; 85730; 86850; 86900; 86901; A9270-GY; J0595; J2590; J2765; J3475; J7040; J7120

== ENCOUNTER 2017-12-11 21:07 | Emergency (ER) | payer MEDICAID ==
--- NOTE | 2017-12-11 21:46 | EDM.PDOC ---
ED HPI GENERAL MEDICAL PROBLEM - General Chief Complaint: ENT Problem Stated Complaint: EAR INFECTION Time Seen by Provider: 12/11/17 21:46 Source of Information: Reports: Patient - History of Present Illness INITIAL COMMENTS - FREE TEXT/NARRATIVE: HISTORY AND PHYSICAL: History of present illness: [ Patient presents with sore throat and left ear pain increasing in severity over the last 2 days, some difficulty with solid food no difficulty with liquid no trismus muffled voice or drooling No fever nausea vomiting chills sweats ] Review of systems: As per history of present illness and below otherwise all systems reviewed and negative. Past medical history: As per history of present illness and as reviewed below otherwise noncontributory. Surgical history: As per history of present illness and as reviewed below otherwise noncontributory. Social history: No reported history of drug or alcohol abuse. Family history: As per history of present illness and as reviewed below otherwise noncontributory. Physical exam: HEENT: Atraumatic, normocephalic, pupils reactive, negative for conjunctival pallor or scleral icterus, mucous membranes moist, throat clear, neck supple, nontender, trachea midline. Moderate erythema oropharynx no exudates left tympanic membrane red bulging loss of landmarks pain with movement of the auricle no mastoid tenderness right is mildly injected no pain with movement of the auricle no mastoid tenderness Lungs: Clear to auscultation, breath sounds equal bilaterally, chest nontender. Heart: S1S2, regular, negative for clicks, rubs, or JVD. Abdomen: Soft, nondistended, nontender. Negative for masses or hepatosplenomegaly. Negative for costovertebral tenderness. Pelvis: Stable nontender. Genitourinary: Deferred. Rectal: Deferred. Extremities: Atraumatic, negative for cords or calf pain. Neurovascular unremarkable. Neuro: Awake, alert, oriented. Cranial nerves II through XII unremarkable. Cerebellum unremarkable. Motor and sensory unremarkable throughout. Exam nonfocal. Diagnostics: [] Therapeutics: [Cipro Cortisporin otic ] Impression: [Otitis media Otitis externa Pharyngitis] Definitive disposition and diagnosis as appropriate pending reevaluation and review of above. left ear Pain Score (Numeric/FACES): 6 - Related Data Allergies Allergy/AdvReac Type Severity Reaction Status Date / Time morphine Allergy Rash Verified 03/02/18 21:27 Penicillins Allergy Anaphylactic Verified 12/11/17 21:27 Shock vancomycin Allergy Anaphylactic Verified 12/11/17 21:27 Shock Home Meds: Home Meds . 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 ED EXAM, GENERAL - Physical Exam Exam: See Below Course - Vital Signs Last Recorded V/S: Last Vital Signs Temp 97 F 12/11/17 21:21 Pulse 70 12/11/17 21:21 Resp 18 12/11/17 21:21 BP 118/66 12/11/17 21:21 Pulse Ox 96 12/11/17 21:21 Departure - Departure Time of Disposition: 21:52 Disposition: Home, Self-Care 01 Condition: Good Clinical Impression: Otitis media, Otitis externa, Pharyngitis - Discharge Information Referrals: Jameson Parrish MD [Primary Care Provider] - Forms: ED Department Discharge Additional Instructions: The following information is given to patients seen in the emergency department who are being discharged to home. This information is to outline your options for follow-up care. We provide all patients seen in our emergency department with a follow-up referral. The need for follow-up, as well as the timing and circumstances, are variable depending upon the specifics of your emergency department visit. If you don't have a primary care physician on staff, we will provide you with a referral. We always advise you to contact your personal physician following an emergency department visit to inform them of the circumstance of the visit and for follow-up with them and/or the need for any referrals to a consulting specialist. The emergency department will also refer you to a specialist when appropriate. This referral assures that you have the opportunity for follow-up care with a specialist. All of these measure are taken in an effort to provide you with optimal care, which includes your follow-up. Under all circumstances we always encourage you to contact your private physician who remains a resource for coordinating your care. When calling for follow-up care, please make the office aware that this follow-up is from your recent emergency room visit. If for any reason you are refused follow-up, please contact the [facility] emergency department at and asked to speak to the emergency department charge nurse.
== END 2017-12-11 22:05 | disposition home or self-care (01) ==
LOC: MW.ED 21:07
DX: H66.92 Otitis media, unspecified, left ear (principal); H60.92 Unspecified otitis externa, left ear; J06.9 Acute upper respiratory infection, unspecified; Z87.891 Personal history of nicotine dependence; Z88.0 Allergy status to penicillin; Z88.1 Allergy status to other antibiotic agents; Z88.5 Allergy status to narcotic agent
CPT/HCPCS: 99282

== ENCOUNTER 2019-02-17 10:14 | Day surgery (SDC) | payer MEDICAID ==
[~2019-02-17 10:14] MED LIST: Lactated Ringers 1,000 ML IV SCH; Sodium Chloride 0.9% 10 ML SDV IV PRN; Sodium Chloride 0.9% 10 ML Syringe FLUSH PRN; Sodium Chloride 0.9% 2.5 ML Syringe FLUSH PRN
--- NOTE | 2019-02-17 10:48 | PCM.PREANE ---
Preanesthetic Assessment - Procedure Proposed Procedure: diagnostic colonoscopy - Anesthesia/Transfusion/Family Hx Anesthesia History: Prior Anesthesia Without Reaction Family History of Anesthesia Reaction: No Transfusion History: No Prior Transfusion(s) - Review of Systems General: No Symptoms Pulmonary: No Symptoms Cardiovascular: No Symptoms Gastrointestinal: No Symptoms Neurological: No Symptoms Other: Reports: None (occasional ETOH, bright red blood per rectum) - Physical Assessment NPO Status Date: 02/17/19 NPO Status Time: 00:00 Height: 5 ft 2 in Weight: 57.153 kg ASA Class: 2 Mental Status: Alert & Oriented x3 Airway Class: Mallampati = 2 Dentition: Reports: Missing Tooth/Teeth ROM/Head Extension: Full Lungs: Clear to Auscultation, Normal Respiratory Effort Cardiovascular: Regular Rate, Regular Rhythm - Allergies Allergies/Adverse Reactions: Allergies Allergy/AdvReac Type Severity Reaction Status Date / Time morphine Allergy Hives Verified 02/14/19 11:24 Penicillins Allergy Anaphylactic Verified 02/14/19 11:24 Shock vancomycin Allergy Anaphylactic Verified 02/14/19 11:24 Shock - Blood Blood Available: No Product(s) Available: None - Anesthesia Plan Pre-Op Medication Ordered: None - Acknowledgements Anesthesia Type Planned: MAC Pt an Appropriate Candidate for the Planned Anesthesia: Yes Alternatives and Risks of Anesthesia Discussed w Pt/Guardian: Yes Pt/Guardian Understands and Agrees with Anesthesia Plan: Yes PreAnesthesia Questionnaire - Past Health History Medical/Surgical History: Denies Medical/Surgical History Cardiovascular History: Reports: Other (See Below) Other Cardiovascular History: was hypertensive during Respiratory History: Reports: Asthma Gastrointestinal History: Reports: Other (See Below) Other Gastrointestinal History: occasional heartburn- take OTC pepsid [employer]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 [No Known Home Meds] 12/11/17 [History] - CURRENT (IN HOUSE) MEDS Current Meds: Current Medications Lactated Ringer's (Ringers, Lactated) 1,000 mls @ 125 mls/hr IV ASDIRECTED GLORIA Sodium Chloride (Saline Flush) 10 ml FLUSH ASDIRECTED PRN PRN Reason: Keep Vein Open Sodium Chloride (Saline Flush) 2.5 ml FLUSH ASDIRECTED PRN PRN Reason: Keep Vein Open Sodium Chloride (Saline Flush) 10 ml FLUSH ASDIRECTED PRN PRN Reason: Keep Vein Open Sodium Chloride (Saline Flush) 2.5 ml FLUSH ASDIRECTED PRN PRN Reason: Keep Vein Open Sodium Chloride (Normal Saline) 10 ml IV ASDIRECTED PRN PRN Reason: IV Use
[2019-02-17] MEDS ORDERED: Propofol 200 MG/20 ML SDV ONE (12:19)
[2019-02-17] MEDS ORDERED: fentaNYL 100 MCG/2 ML SDV ONE (12:20)
[2019-02-17] MEDS ORDERED: Midazolam 1 MG/ML 2 ML SDV ONE (12:20)
--- NOTE | 2019-02-17 14:18 | PCM.OPNOTE ---
- General Post-Op/Procedure Note Date of Surgery/Procedure: 02/17/19 Operative Procedure(s): Diagnostic colonoscopy Findings: Grade II hemorrhoids Pre Op Diagnosis: Bright red bleeding per rectum Post-Op Diagnosis: Grade II hemorrhoids Anesthesia Technique: MAC Primary Surgeon: Sharona Agustin Condition: Good
--- NOTE | 2019-02-17 15:12 | OR ---
SURGEON: SHARONA AGUSTIN MD DATE OF PROCEDURE: 02/17/2019 PREOPERATIVE DIAGNOSIS: Bright red bleeding per rectum. POSTOPERATIVE DIAGNOSIS: Grade 2 hemorrhoids. PROCEDURE PERFORMED: Diagnostic colonoscopy. PRIMARY SURGEON: Endoscopist, Dr. Sharona Agustin. ANESTHESIA: MAC. INSTRUMENT USED: Olympus colonoscope. EXTENT OF EXAM: To the cecum. PREPARATION: Good. LIMITATIONS: None. INDICATION FOR EXAMINATION: The patient is a 23-year-old female, who ever since of her child has been experiencing intermittent bright red bleeding per rectum. Despite conservative measures, she does not feel this is improving. We discussed the need for diagnostic colonoscopy. I explained the procedure, expected perioperative course, and risks including bleeding, infection, or damage to surrounding structures including perforation. The patient verbalized understanding and wishes to proceed. PROCEDURE IN DETAIL: The patient was brought to the endoscopy suite and placed in a left lateral decubitus position. A time-out was completed verifying the patient's name, age, date of , allergies, and procedure to be performed. Monitored anesthesia care was induced and continuous oxygen was provided via nasal cannula throughout the procedure. After adequate sedation was achieved, a digital rectal exam was performed. This exam was within normal limits. A well-lubricated colonoscope was inserted in the rectum and advanced under direct visualization to the level of the cecum. The cecum was identified by both visual and anatomic landmarks. A photograph was taken of the cecal cap as well as with the scope retroflexed within the cecum. The scope was then straightened out and fully withdrawn while examining the color, texture, anatomy, and integrity of the mucosa from the cecum to the anal canal. The findings were consistent with normal colonic mucosa. The scope was then brought into the rectum and retroflexed to allow visualization of the anal canal opening. This revealed mildly enlarged hemorrhoidal tissue with no stigmata of recent bleeding. A photograph of this was taken. The scope was then straightened out and fully withdrawn. The cecum to anus time was 6 minutes. The patient tolerated the procedure well and was taken to PACU in stable condition. ENDOSCOPIC DIAGNOSIS: Grade 2 hemorrhoids. RECOMMENDATIONS: Follow up in clinic in 2 weeks to discuss management of her hemorrhoidal disease. LAZ SHEIKH /[id number]
== END 2019-02-17 15:30 | disposition home or self-care (01) ==
LOC: MW.SDS 10:14
PROVIDERS: ATTEND Surgery
DX: K62.5 Hemorrhage of anus and rectum (principal); K64.1 Second degree hemorrhoids; J45.909 Unspecified asthma, uncomplicated; G89.29 Other chronic pain; M54.9 Dorsalgia, unspecified; Z87.891 Personal history of nicotine dependence; Z88.0 Allergy status to penicillin; Z88.1 Allergy status to other antibiotic agents; Z88.5 Allergy status to narcotic agent
CPT/HCPCS: 45378; 81025; J2250; J2704; J3010; J7120; 00811